=== PATIENT | male | born 1990 ===

== ENCOUNTER 2017-09-01 15:49 | Outpatient (CLI) | payer OTHER | END 2017-09-01 17:00 | disposition home or self-care (01) | LOC: RAD 15:49 | DX: R50.81 Fever presenting with conditions classified elsewhere (principal); D72.829 Elevated white blood cell count, unspecified ==

== ENCOUNTER → 2020-10-11 09:55 | Outpatient (CLI) | payer OTHER | END | disposition home or self-care (01) | LOC: RAD 09:55 | PROVIDERS: ATTEND Radiology Diagnostic Radiology | DX: M25.532 Pain in left wrist (principal) ==